=== PATIENT | male | born 1950 | race African-American/Black ===

== ENCOUNTER 2023-11-03 12:10 | Inpatient (IN) | payer MEDICARE, MEDICAID ==
[~2023-11-03] VITALS: Ht 188 cm; Wt 69.4 kg
[~2023-11-03 12:10] MED LIST: ALBU2.5V13 NEB; LANS30CA52 PO; ONDA4TAB5 PO
[2023-11-03 13:03] LABS: HEMATOCRIT. 47.5 % (42.0-52.0); HEMOGLOBIN. 15.1 g/dL (14.0-18.0); MEAN CORPUSCULAR HEMOGLOBIN 26.2 pg (28.0-32.0); MEAN CORPUSCULAR HGB CONC 31.8 g/dL (31.0-37.0); MEAN CORPUSCULAR VOLUME 82.5 fL (80.0-94.0); MEAN PLATELET VOLUME 7.6 fl (7.4-10.4); PLATELET 338 x1000/uL (130-400); RED BLOOD CELL COUNT 5.76 mill/uL (4.7-6.1); RED CELL DISTRIBUTION WIDTH 15.7 % (11.6-14.6)
[2023-11-03 13:08] LABS: DIFFERENTIAL COMMENT 1
[2023-11-03 13:15] LABS: INR 0.9; PARTIAL THROMBOPLASTIN TIME 24.2 sec (23.4-31.0); PROTHROMBIN TIME 10.4 sec (9.6-11.0)
[2023-11-03] MEDS: METHYLPREDNISOLONE SOD SUCC 125MG/2ML (ACT-O-VIAL) IV ONE (13:45)
[2023-11-03] MEDS: CEFTRIAXONE 1GM/50ML 50 ML IV ONE (13:45)
[2023-11-03] MEDS: ASPIRIN 325MG EC TABLET PO ONE (13:45)
[2023-11-03] MEDS: MAGNESIUM 2 G PREMIX 50 ML IV ONE (13:45)
[2023-11-03] MEDS: AZITHROMYCIN 500MG/250ML 250 ML IV SCH (13:45)
[2023-11-03 13:57] LABS: ANISOCYTOSIS 1+; PLATELET ESTIMATE NORMAL
[2023-11-03 14:09] VITALS: PULSE 91; RESP 20; O2SAT 95
[2023-11-03] MEDS: IPRATROPIUM/ALBUTEROL 0.5-3(2.5)MG/3ML NEB HHN ONE (14:09)
[2023-11-03] MEDS: ALBUTEROL (0.083%) 2.5MG/3ML NEB HHN ONE (14:19)
[2023-11-03 14:20] VITALS: PULSE 92; RESP 20; O2SAT 98
[2023-11-03 15:08] LABS: ALANINE AMINOTRANSFERASE 65 IU/L (10-49); ASPARTATE AMINOTRANSFERASE 28 IU/L (<34); BILIRUBIN TOTAL 0.5 mg/dL (0.1-1.0); CALCIUM 8.4 mg/dL (8.7-10.4); CARBON DIOXIDE 28 mEq/L (21-32); CHLORIDE 105 mEq/L (98-107); GLUCOSE 74 mg/dL (70-105); POTASSIUM 4.4 mEq/L (3.5-5.1); PROTEIN TOTAL 6.6 g/dL (6.0-8.3); SODIUM 142 mEq/L (136-145); TROPONIN I HIGH SENSITIVITY 18 ng/L (3.0-53); UREA NITROGEN BLOOD 26 mg/dL (9-23)
[2023-11-03 15:11] LABS: ETHANOL BLOOD < 10 mg/dL (<10)
[2023-11-03 17:06] LABS: TROPONIN I HIGH SENSITIVITY 17 ng/L (3.0-53)
[2023-11-03 17:45] LABS: BG BASE EXCESS 2.1 mmol/L (-2.0-2.0); BG CARBOXYHEMOGLOBIN 0.4 % (0.5-1.5); BG DEOXYHEMOGLOBIN 5.5 % (0.0-5.0); BG HCO3 ACT 26.4 mmol/L (22.0-26.0); BG METHEMOGLOBIN 0.3 % (0.0-1.5); BG OXYGEN SATURATION 94.5 % (92.0-98.5); BG OXYHEMOGLOBIN 93.8 % (94.0-97.0); BG PH 7.437 (7.350-7.450); BG PO2 71.1 mmHg (75.0-100.0); BG SAMPLE SITE RIGHT BRACHIAL; BG TOTAL HEMOGLOBIN 15.7 g/dL (12.0-18.0); BG VENT MODE ROOM AIR
[2023-11-03 18:44] LABS: HEMATOCRIT 46.7 % (42.0-52.0); HEMOGLOBIN 14.9 g/dL (14.0-18.0); MEAN CORPUSCULAR HEMOGLOBIN 27.1 pg (28.0-32.0); MEAN CORPUSCULAR HGB CONC 31.9 g/dL (31.0-37.0); MEAN CORPUSCULAR VOLUME 84.9 fL (80.0-94.0); PLATELET 256 x1000/uL (130-400); RED BLOOD CELL COUNT 5.51 mill/uL (4.7-6.1); RED CELL DISTRIBUTION WIDTH 15.9 % (11.6-14.6); WHITE BLOOD COUNT 26.2 x1000/uL (4.5-11.0)
[2023-11-03 21:20] LABS: CLARITY URINE CLEAR (CLEAR); COLOR URINE YELLOW (YELLOW); GLUCOSE URINE TRACE (NEGATIVE); KETONES URINE NEGATIVE (NEGATIVE); LEUKOCYTE ESTERASE URINE NEGATIVE (NEGATIVE); NITRITE URINE NEGATIVE (NEGATIVE); OCCULT BLOOD URINE NEGATIVE (NEGATIVE); PH URINE 7.5 (4.5-8.0); PROTEIN URINE NEGATIVE (NEGATIVE); SPECIFIC GRAVITY URINE 1.018 (1.005-1.030)
[2023-11-03 21:33] LABS: *AMPHETAMINES SCREEN URINE NEGATIVE (NEGATIVE); *BARBITURATES SCREEN URINE NEGATIVE (NEGATIVE); *BENZODIAZEPINES SCREEN URINE NEGATIVE (NEGATIVE); *COCAINE SCREEN URINE PRESUMPTIVE POSITIVE (NEGATIVE); CANNABINOID URINE SCREEN NEGATIVE (NEGATIVE); ECSTASY MDMA SCREEN URINE NEGATIVE (NEGATIVE); METHADONE URINE SCREEN Neg (NEGATIVE); OPIATES URINE SCREEN NEGATIVE (NEGATIVE); PHENCYCLIDINE URINE SCREEN NEGATIVE (NEGATIVE)
[2023-11-03 21:47] LABS: BACTERIA URINE NONE SEEN; RBC URINE NONE SEEN /hpf (0-2); SQUAMOUS EPITHELIAL CELL URINE RARE /lpf (RARE/1+); WBC URINE 0-2 /hpf (0-2)
[2023-11-03 23:50] VITALS: BP 153/89; PULSE 95; RESP 20; TEMP 99.5
[2023-11-04] VITALS (12 sets, daily range): BP systolic 119–171; BP diastolic 71–97; PULSE 66–107; RESP 17–22; TEMP 97.3–99.1; O2SAT 96–98
[2023-11-04] MEDS ORDERED: ONDANSETRON HCL 4MG/2ML INJ IV PRN
[2023-11-04] MEDS: IPRATROPIUM/ALBUTEROL 0.5-3(2.5)MG/3ML NEB HHN SCH (00:33)
[2023-11-04] MEDS ORDERED: CLONIDINE 0.1MG TABLET PO PRN (05:15)
[2023-11-04 05:49] LABS: HEMATOCRIT 43.8 % (42.0-52.0); HEMOGLOBIN 14.2 g/dL (14.0-18.0); MEAN CORPUSCULAR HEMOGLOBIN 26.4 pg (28.0-32.0); MEAN CORPUSCULAR HGB CONC 32.4 g/dL (31.0-37.0); MEAN CORPUSCULAR VOLUME 81.5 fL (80.0-94.0); PLATELET 330 x1000/uL (130-400); RED BLOOD CELL COUNT 5.37 mill/uL (4.7-6.1); RED CELL DISTRIBUTION WIDTH 15.5 % (11.6-14.6); WHITE BLOOD COUNT 19.3 x1000/uL (4.5-11.0)
[2023-11-04 06:07] LABS: CALCIUM 8.2 mg/dL (8.7-10.4); CARBON DIOXIDE 30 mEq/L (21-32); CHLORIDE 104 mEq/L (98-107); CREATININE 1.1 mg/dL (0.6-1.3); GLUCOSE 201 mg/dL (70-105); POTASSIUM 4.8 mEq/L (3.5-5.1); SODIUM 139 mEq/L (136-145); UREA NITROGEN BLOOD 29 mg/dL (9-23)
[2023-11-04 07:20] LABS: HEPATITIS B SURFACE ANTIGEN NEGATIVE (Negative); HEPATITIS C AB NON REACTIVE (Neg) (Negative)
[2023-11-04] MEDS: METHYLPREDNISOLONE SOD SUCC 40MG/ML (ACT-O-VIAL) IV SCH (08:25)
[2023-11-04] MEDS: AMLODIPINE 10MG TABLET PO SCH (08:26)
[2023-11-04] MEDS ORDERED: FLUT1DIS3 INH (16:00)
[2023-11-04] MEDS ORDERED: P20 MT (16:00)
[2023-11-04] MEDS: HYDROCODONE/ACETAMINOPHEN 5/325MG TABLET PO PRN (16:18)
[2023-11-04] MEDS ORDERED: NALOXONE HCL 0.4MG/ML VIAL IV PRN (21:30)
[2023-11-04] MEDS: FAMOTIDINE 20MG TABLET PO SCH (21:59)
[2023-11-05] VITALS (9 sets, daily range): BP systolic 120–132; BP diastolic 75–85; PULSE 75–104; RESP 18–20; TEMP 97–99.7; O2SAT 96–98
== END 2023-11-05 16:30 | disposition home or self-care (01) | DRG 140 ==
LOC: ER 12:10 → 7WST 18:49 → EDBEDREQTM 18:55 → EDBEDREQ 18:55
PROVIDERS: ADMIT Internal Medicine; ATTEND Internal Medicine
DX: J44.1 Chronic obstructive pulmonary disease with (acute) exacerbation (principal); J96.20 Acute and chronic respiratory failure, unspecified whether with hypoxia or hypercapnia; Z99.81 Dependence on supplemental oxygen; F14.90 Cocaine use, unspecified, uncomplicated; Z20.822 Contact with and (suspected) exposure to COVID-19; D72.829 Elevated white blood cell count, unspecified; F17.210 Nicotine dependence, cigarettes, uncomplicated; I10 Essential (primary) hypertension
CPT/HCPCS: 36415; 36600; 71045; 80048; 80053; 80305; 80320; 81003; 82375; 82805; 83605; 83880; 84145; 84484; 85025; 85027; 86705; 87340; 87426; 93005; 94640; 99291; J0456; J0696; J2920; J2930; J3475; G0480